=== PATIENT | male | born 1975 ===

== ENCOUNTER 2018-06-11 21:20 | Emergency (ER) | payer OTHER ==
[2018-06-11 22:46] VITALS: BMI 34.4
[2018-06-11 22:55] VITALS: RESP 16; TEMP 98.4; O2SAT 96
[2018-06-11] MEDS ORDERED: Erythromycin 0.5% Ophth Oint 1 APPLIC/3.5 G OU ONE (23:03)
[2018-06-11] MEDS ORDERED: Amoxicillin-Clav 875-125 mg Tab PO STA (23:04)
--- NOTE | 2018-06-11 23:07 | ED PDOC ---
Arrival/HPI - General Chief Complaint: Eye Problem Time Seen by Provider: 06/11/18 21:21 Historian: Patient - History of Present Illness Narrative History of Present Illness (Text): 06/11/18 23:05 42 y/o male pmh including htn/hld, nkda, c/o rt. upper eyelid lump and discomfort x 2 weeks with no fall or trauma. Pt. stated that he has this lump, been there for 2 weeks, no painful movement of the eye, no headache or neck pain, no numbness or tingling, no dizziness, no change in vision, no other medical or psychological complaints. Past Medical History - Provider Review Nursing Documentation Reviewed: Yes - Cardiac Hx Hypertension: Yes - Pulmonary Hx Pneumonia: Yes (2010) - Renal Hx Kidney Stones: Yes - Endocrine/Metabolic Hx Endocrine Disorders: Yes Hx Hypothyroidism: Yes - Musculoskeletal/Rheumatological Hx Falls: No - Psychiatric Hx Substance Use: No - Surgical History Hx Tonsillectomy: Yes - Anesthesia Hx Anesthesia: Yes Hx Anesthesia Reactions: No Hx Malignant Hyperthermia: No Family/Social History - Physician Review Nursing Documentation Reviewed: Yes Family/Social History: Unknown Family HX Smoking Status: Light Smoker < 10 Cigarettes Daily Hx Alcohol Use: Yes Hx Substance Use: No Allergies/Home Meds Allergies/Adverse Reactions: Allergies No Known Allergies Allergy (Verified 06/11/18 22:46) Review of Systems - Review of Systems Constitutional: absent: Fatigue, Fevers Eyes: Other (rt. upper eyelid swelling lump). absent: Vision Changes ENT: absent: Hearing Changes Respiratory: absent: SOB, Cough Cardiovascular: absent: Chest Pain Gastrointestinal: absent: Abdominal Pain, Diarrhea, Nausea, Vomiting Skin: absent: Rash, Pruritis Neurological: absent: Headache Psychiatric: absent: Anxiety, Depression Physical Exam Vital Signs Reviewed: Yes Vital Signs Temp Pulse Resp BP Pulse Ox 06/11/18 22:54 98.4 F 85 16 130/79 96 Temperature: Afebrile Blood Pressure: Normal Pulse: Regular Respiratory Rate: Normal Appearance: Positive for: Well-Appearing, Non-Toxic, Comfortable Pain Distress: Mild Mental Status: Positive for: Alert and Oriented X 3 - Systems Exam Head: Present: Atraumatic, Normocephalic Pupils: Present: PERRL, Other (Eyes: bilateral vision w/correction 20/30 vs. rt. eye with correction 20/30 vs. lt. eye with correction 20/30, rt. upper eyelid noted to have stye with swelling and erythematous, no entractment and no painful movement of the eye, no foreign bodies. ) Extroacular Muscles: Present: EOMI, Other (no periorbital swelling) Conjunctiva: Present: Normal Ears: Present: NORMAL TM, Normal Canal. No: Erythema Mouth: Present: Moist Mucous Membranes Neck: Present: Normal Range of Motion Respiratory/Chest: Present: Clear to Auscultation, Good Air Exchange. No: Respiratory Distress, Accessory Muscle Use Cardiovascular: Present: Regular Rate and Rhythm, Normal S1, S2. No: Murmurs Abdomen: No: Tenderness, Distention, Peritoneal Signs Back: Present: Normal Inspection Upper Extremity: Present: Normal Inspection. No: Cyanosis, Edema Lower Extremity: Present: Normal Inspection. No: Edema Neurological: Present: GCS=15, CN II-XII Intact, Speech Normal Skin: Present: Warm, Dry, Normal Color. No: Rashes Psychiatric: Present: Alert, Oriented x 3, Normal Insight, Normal Concentration Medical Decision Making ED Course and Treatment: 06/11/18 23:10 -opthalmic antibiotic/augmentin and tylenol -Discharge home with augmentin/erythromycin opthamic, take tylenol for pain as needed, heat compression, follow up with your own pmd and opthalmologist within 2 days, return to the ER for any new or worsening signs or symptoms. - PA / BARREL RAISER / Resident Statement MD/DO has reviewed & agrees with the documentation as recorded. Disposition/Present on Arrival - Present on Arrival Any Indicators Present on Arrival: No History of DVT/PE: No History of Uncontrolled Diabetes: No Urinary Catheter: No History of Decub. Ulcer: No History Surgical Site Infection Following: None - Disposition Have Diagnosis and Disposition been Completed?: Yes Diagnosis: Stye, Swollen eyelid Disposition: HOME/ ROUTINE Disposition Time: 23:12 Patient Plan: Discharge Condition: GOOD Additional Instructions: -Discharge home with augmentin/erythromycin opthamic, take tylenol for pain as needed, heat compression, follow up with your own pmd and opthalmologist within 2 days, return to the ER for any new or worsening signs or symptoms. Prescriptions: Amoxicillin/Clavulanate [Augmentin 875 MG-125 MG] 1 tab PO BID #20 tab Erythromycin 0.5% [Erythromycin] 0.5 inch OD QID #10 g Referrals: Richy Valle MD [Staff Provider] - Follow up with primary Forms: [employer] (Romanian), WORK NOTE
[2018-06-12 00:02] VITALS: BP 104/70; PULSE 80
== END 2018-06-12 | disposition home or self-care (01) ==
LOC: ED 21:20
DX: H00.011 Hordeolum externum right upper eyelid (principal)